=== PATIENT | male | born 1965 | race Caucasian/White ===

== ENCOUNTER 2022-06-17 08:00 | Outpatient (CLI) | payer OTHER ==
[2022-06-17 22:05] LABS: CHLAMYDIA TRACHOMATIS DNA NEGATIVE (NEGATIVE); NEISSERIA GONORRHOEAE DNA NEGATIVE (NEGATIVE)
== END 2022-06-17 23:59 | disposition home or self-care (01) ==
LOC: LAB.N 08:00
PROVIDERS: ATTEND Physician Assistant
DX: R30.0 Dysuria (principal)
CPT/HCPCS: 87491; 87591; 87661

== ENCOUNTER 2022-11-07 21:47 | Outpatient (CLI) | payer OTHER ==
--- NOTE | 2022-11-08 08:59 | XRAY Report ---
PROCEDURE: Knee 3 View LT INDICATIONS: JOINT EFFUSION, LEFT KNEE TECHNIQUE: 3 views of the left knee(s) were acquired. COMPARISON: None. FINDINGS: Bones: Surgical changes reflecting ACL repair are noted. There is moderate medial mild to moderate l ateral and patellofemoral compartment narrowing. Periarticular osteophytes are present. Soft tissues: Minimal knee joint effusion. No suspicious soft tissue calcifications or masses. IMPRESSION: Postsurgical and degenerative changes as above. Reviewed by: Teresa Alva MD on 11/08/2022 8:58 AM PDT Approved by: Teresa Alav MD on 11/08/2022 8:58 AM PDT Station ID: [id number]
== END 2022-11-07 21:48 | disposition home or self-care (01) ==
LOC: DI 21:47
PROVIDERS: ATTEND Physician Assistant
DX: M25.462 Effusion, left knee (principal); Z96.652 Presence of left artificial knee joint